=== PATIENT | male | born 1990 | race Caucasian/White ===

== ENCOUNTER 2018-11-24 19:55 | Emergency (ER) | payer OTHER ==
[2018-11-25] MEDS ORDERED: Cyclobenzaprine TAB* 10 MG PO ONE (01:01)
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
[2018-11-25 02:05] VITALS: BP 132/86
== END 2018-11-25 01:15 | disposition home or self-care (01) ==
LOC: ED 19:55
DX: M62.838 Other muscle spasm (principal); V49.9XXA Car occupant (driver) (passenger) injured in unspecified traffic accident, initial encounter
CPT/HCPCS: 99282; A9270-GY